=== PATIENT | female | born 1985 | race Two or more races ===

== ENCOUNTER 2024-03-01 05:19 | Emergency (ER) | payer BC, OTHER | END 2024-03-01 06:14 | disposition left against medical advice (07) | LOC: ER 05:19 | DX: F41.9 Anxiety disorder, unspecified (principal); Z53.21 Procedure and treatment not carried out due to patient leaving prior to being seen by health care provider ==

== ENCOUNTER 2024-03-02 00:44 | Emergency (ER) | payer BC, OTHER ==
[~2024-03-02] VITALS: Ht 162.6 cm; Wt 77.1 kg
[2024-03-02 01:00] VITALS: BP 134/68; TEMP 98.1; O2SAT 98
== END 2024-03-02 01:15 | disposition home or self-care (01) ==
LOC: ER 00:48
DX: Z00.8 Encounter for other general examination (principal); Z59.00 Homelessness unspecified; F41.9 Anxiety disorder, unspecified